=== PATIENT | female | born 1950 | race Caucasian/White ===

== ENCOUNTER → 2017-06-07 | Outpatient (CLI) | payer MEDICARE ==
[~2017-06-07] MED LIST: ALPR.25 PO; AMLO5TAB2 PO; ATOR40TA16 PO; ESTROG; IBUP-232 PO; LOSA100T PO; METR1TAB76 PO; MULTTAB67 PO; NEUR300C PO; PREM0.45 PO; PROT40TA PO; TOPR100T PO; TRAZ100T10 PO; TRIAM; VESI5TAB2 PO; VIT B
[2017-06-07 09:39] LABS: BASOPHIL % 0.4 % (0.0-2.0); EOSINOPHIL # 0.2 TH/MM3 (0-0.4); HEMATOCRIT 34.6 % (35.0-46.0); HEMO FLAGS DIFF FINAL; LYMPH % 10.3 % (9.0-44.0); LYMPHOCYTE # 1.2 TH/MM3 (1.0-4.8); MEAN CELL VOLUME 89.4 FL (80.0-100.0); MEAN CORPUSCULAR HEMOGLOBIN 29.5 PG (27.0-34.0); MONO % 8.5 % (0.0-8.0); NEUT % 78.8 % (16.0-70.0); PLATELET COUNT 243 TH/MM3 (150-450); RED BLOOD COUNT 3.88 MIL/MM3 (4.00-5.30); RED CELL DISTRIBUTION WIDTH 13.3 % (11.6-17.2); WHITE BLOOD COUNT 11.4 TH/MM3 (4.0-11.0)
[2017-06-07 13:04] LABS: ANION GAP 9 MEQ/L (5-15); AST (GOT) 18 U/L (15-37); BICARBONATE 28.1 MEQ/L (21.0-32.0); BLOOD UREA NITROGEN 9 MG/DL (7-18); CHLORIDE 105 MEQ/L (98-107); GLOMERULAR FILTRATION RATE 74 ML/MIN (>89); GLUCOSE,FASTING 83 MG/DL (74-99); POTASSIUM 3.7 MEQ/L (3.5-5.1); SODIUM (NA) 142 MEQ/L (136-145)
[2017-06-07 13:16] LABS: ALKALINE PHOSPHATASE 72 U/L (45-117); ALT (GPT) 23 U/L (10-53); HDL CHOLESTEROL 54.1 MG/DL (40.0-60.0); LDL CHOLESTEROL 50 MG/DL (0-99); TOTAL BILIRUBIN ADULT 0.4 MG/DL (0.2-1.0)
== END ==
LOC: PLAB 07:30
PROVIDERS: ATTEND Family Medicine
DX: I10 Essential (primary) hypertension (principal); E78.2 Mixed hyperlipidemia; K21.9 Gastro-esophageal reflux disease without esophagitis; R63.5 Abnormal weight gain
CPT/HCPCS: 36415; 80053; 80061; 84443; 85025

== ENCOUNTER → 2017-06-09 | Outpatient (CLI) | payer MEDICARE ==
[~2017-06-09] MED LIST changes: -IBUP-232 PO
[2017-06-09 16:10] LABS: C. DIFF EPI 027 PRESUMPTIVE NEGATIVE (NEGATIVE)
== END ==
LOC: CLAB 13:59
PROVIDERS: ATTEND Family Medicine
DX: A09 Infectious gastroenteritis and colitis, unspecified (principal)
CPT/HCPCS: 87328; 87329; 87493; 87506

== ENCOUNTER 2017-08-16 16:35 | Emergency (ER) | payer MEDICARE ==
[~2017-08-16] VITALS: Ht 161.3 cm; Wt 78.7 kg
[~2017-08-16 16:35] MED LIST changes: -METR1TAB76 PO; +VANC125C3 PO
[2017-08-16 16:40] VITALS: BP 150/78; PULSE 98; RESP 16; TEMP 99.7; O2SAT 99
[2017-08-16] MEDS ORDERED: AMLO5 PO (17:14)
[2017-08-16] MEDS ORDERED: TYLETAB34 PO (17:17)
[2017-08-16] MEDS ORDERED: ACYC800T PO (17:17)
--- NOTE | 2017-08-16 17:22 | PD ---
HPI Chief Complaint: Skin Problem Time Seen by Provider: 17:11 Travel History International Travel<30 days: No Contact w/Intl Traveler<30days: No Traveled to known affect area: No History of Present Illness HPI 67-year-old female presents for evaluation of a rash. Initially she developed a burning pain on the right side of her chest and neck 5 days ago. She developed a rash in the same area 3 days ago. Symptoms are moderate, no relieving factors. She does take Neurontin on a chronic basis. Denies any sick contacts or unusual skin exposures. No other complaints. PFSH Past Medical History Cancer: No Cardiovascular Problems: No High Cholesterol: Yes Diabetes: No Diminished Hearing: No Endocrine: No Gastrointestinal Disorders: Yes (GERD) GERD: Yes Genitourinary: No Hepatitis: Yes (-1971) Hiatal Hernia: No Hypertension: Yes Immune Disorder: No Medical other: No Musculoskeletal: Yes (CHRONIC BACK PAIN) Neurologic: No Psychiatric: No Reproductive: Yes (S/P HYSTERECTOMY) Respiratory: No Immunizations Current: Yes Thyroid Disease: No Tetanus Vaccination: Unknown Influenza Vaccination: No ?: Not LMP: MENOPAUSAL Past Surgical History Abdominal Surgery: Yes (1958 APPENDECTOMY) Body Medical Devices: NONE Cholecystectomy: Yes Gynecologic Surgery: Yes (1980 LAP TUBAL LIGATION ; 03/10 LAP HYSTERECTOMY) Hysterectomy: Yes Neurologic Surgery: Yes (LAMINOTOMY L4-5 ) Social History Alcohol Use: Yes (SOCIAL) Tobacco Use: No Substance Use: No Allergies-Medications (Allergen,Severity, Reaction): Coded Allergies: erythromycin base (Unverified Allergy, Severe, NAUSEA AND VOMITING, ) MILD REACTION; NAUSEA AND VOMITING Sulfa (Sulfonamide Antibiotics) (Unverified Allergy, Unknown, 08/16/17) Unknown reaction , was told by mom she is allergic Reported Meds & Prescriptions Reported Meds & Active Scripts Active Tylenol-Codeine #3 (Acetaminophen-Codeine) 300-30 mg Tab 1 Tab PO Q4H PRN Acyclovir 800 Mg Tab 800 Mg PO 5 TIMES A DAY 7 Days Toprol XL (Metoprolol Succinate) 100 Mg Tab 100 Mg PO HS Premarin (Estrogens, Conjugated) 0.45 Mg Tab 0.45 Mg PO DAILY Trazodone (Trazodone HCl) 100 Mg Tablet 100 Mg PO HS One at bedtime Xanax (Alprazolam) 0.25 Mg Tab 0.25 Mg PO TID PRN Atorvastatin (Atorvastatin Calcium) 40 Mg Tab 40 Mg PO DAILY Protonix (Pantoprazole Sodium) 40 Mg Tab 40 Mg PO BID Losartan (Losartan Potassium) 100 Mg Tab 100 Mg PO DAILY Reported Norvasc (Amlodipine Besylate) 5 Mg Tab 5 Mg PO DAILY Review of Systems General / Constitutional: No: Fever, Chills Cardiovascular: No: Chest Pain or Discomfort Respiratory: No: Cough, Shortness of Breath Skin: Positive Rash, Positive Other (positive for painful rash), No Itching Physical Exam Narrative GENERAL: Well-developed well-nourished female in no acute distress SKIN: Warm and dry. Erythematous vesicular rash noted on the right side of the chest and neck at the C5 dermatomal distribution. HEAD: Atraumatic. Normocephalic. EYES: Pupils equal and round. No scleral icterus. No injection or drainage. ENT: No nasal bleeding or discharge. Mucous membranes pink and moist. NECK: Trachea midline. No JVD. CARDIOVASCULAR: Regular rate and rhythm. No murmur appreciated. RESPIRATORY: No accessory muscle use. Clear to auscultation. Breath sounds equal bilaterally. Data Data Last Documented VS Vital Signs Date Time Temp Pulse Resp B/P (MAP) Pulse Ox O2 Delivery O2 Flow Rate FiO2 08/16/17 16:40 99.7 98 16 150/78 (102) 99 MDM Medical Decision Making Medical Screen Exam Complete: Yes Emergency Medical Condition: Yes Medical Record Reviewed: Yes Differential Diagnosis Shingles, allergic contact dermatitis, irritant contact dermatitis Narrative Course Examination is consistent with right-sided shingles of the C5 dermatome distribution. The patient is being discharged with acyclovir and a short course of Tylenol with codeine. Diagnosis Primary Impression: Shingles Additional Instructions: Medication as prescribed. Avoid those have never been exposed to chickenpox virus, avoid those at the extremes of age(elderly, neonates), avoid those on immunocompromising medication such as chemotherapy until the rash is resolved. Med/Other Pt SpecificInfo: Prescription(s) given Scripts Acetaminophen-Codeine (Tylenol-Codeine #3) 300-30 mg Tab 1 TAB PO Q4H Y for PAIN, #15 TAB 0 Refills Prov: Domenic Guzmán MD 08/16/17 Acyclovir (Acyclovir) 800 Mg Tab 800 MG PO 5 TIMES A DAY for Mgmt Viral Infection for 7 Days, TAB 0 Refills Prov: Domenic Guzmán MD 08/16/17 Disposition: 01 DISCHARGE HOME Condition: Stable Favian Garay Aug 16, 2017 17:22
== END 2017-08-16 17:36 | disposition home or self-care (01) ==
LOC: PHED 16:35 → PHEFT 17:36
DX: B02.9 Zoster without complications (principal); I10 Essential (primary) hypertension; K21.9 Gastro-esophageal reflux disease without esophagitis; E78.00 Pure hypercholesterolemia, unspecified; Z87.39 Personal history of other diseases of the musculoskeletal system and connective tissue
CPT/HCPCS: 99284